=== PATIENT | female | born 1965 | race Caucasian/White ===

== ENCOUNTER 2021-11-10 16:20 | Outpatient (CLI) | payer OTHER, SELFPAY ==
[2021-11-10 21:57] LABS: Albumin* 4.5 g/dL (3.3-5.0); Chloride* 104 mmol/L (96-114)
[2021-11-10 21:58] LABS: Potassium* 4.1 mmol/L (3.6-5.1); Sodium* 137 mmol/L (135-149)
[2021-11-10 22:00] LABS: Bilirubin Total* 0.4 mg/dL (0.1-1.5); Blood Urea Nitrogen* 14 mg/dL (7-30); Carbon Dioxide* 24 mmol/L (20-32); Cholesterol* 182 mg/dL (90-199); Creatinine* 0.6 mg/dL (0.5-1.5); Estimated Glomerular Filt Rate 106 ml/min; Total Protein* 7.3 g/dL (6.0-8.3)
[2021-11-10 22:01] LABS: Alanine Aminotransferase* 55 U/L (4-35); Alkaline Phosphatase* 103 U/L (40-150); Aspartate Amino Transferase* 38 U/L (12-35); Calcium* 9.5 mg/dL (8.4-10.6); Glucose* 101 mg/dL (60-115); HDL Cholesterol* 57 mg/dL (>=50); LDL Cholesterol Calculated 109 mg/dL (<100); Triglycerides* 80 mg/dL (40-149)
[2021-11-10 22:17] LABS: Vitamin D 25 Hydroxy* 36 ng/mL (30-80)
[2021-11-10 22:58] LABS: Hepatitis C Virus Antibody* Positive (Negative)
== END 2021-11-10 16:21 | disposition home or self-care (01) ==
PROVIDERS: PCP Family Medicine; Visit Provider Family Medicine
DX: F32.A Depression, unspecified (principal); M85.80 Other specified disorders of bone density and structure, unspecified site; Z13.220 Encounter for screening for lipoid disorders; R76.8 Other specified abnormal immunological findings in serum; Z11.59 Encounter for screening for other viral diseases; Z79.899 Other long term (current) drug therapy
CPT/HCPCS: 80053; 80061; 82306; 84443; 86803; 87522

== ENCOUNTER 2022-04-27 15:11 | Outpatient (CLI) | payer OTHER, SELFPAY ==
--- NOTE | 2022-04-27 15:00 | CRLHL7_ITS ---
For Patients: As a result of the Century Cures Act, medical imaging exams and procedure reports are released immediately into your electronic medical record. You may view this report before your referring provider. If you have questions, please contact your health care provider. BILATERAL SCREENING MAMMOGRAM WITH COMPUTER-AIDED DETECTION TECHNIQUE: CC and MLO views were obtained. These mammographic images have been obtained using full-field digital technique. These mammographic images were interpreted with the benefit of computer-aided detection. COMPARISON FILM: 08/30/17, 07/06/16, 07/02/14. FINDINGS: The breasts are heterogeneously dense, which may obscure small masses IMPRESSION: There is no radiographic evidence for malignancy. ASSESSMENT: BI-RADS Category 1: Negative RECOMMENDATION: Routine screening mammogram in 1 year. A lay language report of this examination will be provided to the patient. Qamar Dominguez M.D. Diagnostic Radiologist [email or web address] LINO/Dictated by: Qamar Dominguez MD @ 05/04/2022 9:41:00 AM (Electronically Signed)
== END 2022-04-27 15:12 | disposition home or self-care (01) ==
PROVIDERS: PCP Family Medicine
DX: Z12.31 Encounter for screening mammogram for malignant neoplasm of breast (principal); R92.2 Inconclusive mammogram
CPT/HCPCS: 77063; 77067

== ENCOUNTER 2024-04-03 14:41 | Outpatient (CLI) | payer OTHER, SELFPAY | END 2024-04-03 14:42 | disposition home or self-care (01) | PROVIDERS: PCP Family Medicine; Visit Provider Family Medicine | DX: I10 Essential (primary) hypertension (principal); R79.89 Other specified abnormal findings of blood chemistry; Z13.6 Encounter for screening for cardiovascular disorders; Z13.1 Encounter for screening for diabetes mellitus | CPT/HCPCS: 80053; 80061; 82043; 82570 ==

== ENCOUNTER 2024-05-11 12:13 | Outpatient (CLI) | payer OTHER, SELFPAY ==
--- NOTE | 2024-05-11 13:33 | P.ANES_ITS ---
Anesthesia Charges Start Date/Time Anesthesia Start Date: 05/11/24 Anesthesia Start Time: 13:08 Stop Date/Time Anesthesia Stop Date: 05/11/24 Anesthesia Stop Time: 13:31 Coding CPT Codes CPT Codes: DULCE LWR INTST SCR COLSC - 11565 ([id number]) P2 - PATIENT W/MILD SYST DISEASE, QX - SLIP COVER CUTTER SVC W/ MD MED DIRECTION, QK - SEPTIC TECHNICIAN 2-4 CNCRNT ANES PROC
--- NOTE | 2024-05-11 13:33 | W.ANESCHARGE ---
Anesthesia Charges Start Date/Time Anesthesia Start Date: 05/11/24 Anesthesia Start Time: 13:08 Stop Date/Time Anesthesia Stop Date: 05/11/24 Anesthesia Stop Time: 13:31 Coding CPT Codes CPT Codes: DULCE LWR INTST SCR COLSC - 90810 ([id number]) P2 - PATIENT W/MILD SYST DISEASE, QX - POSTAL DELIVERY OFFICER SVC W/ MD MED DIRECTION, QK - ELECTRO MECHANICAL TECHNOLOGIST 2-4 CNCRNT ANES PROC
--- NOTE | 2024-05-11 13:45 | P.ANES_ITS ---
Anesthesia Charges Start Date/Time Anesthesia Start Date: 05/11/24 Anesthesia Start Time: 13:08 Stop Date/Time Anesthesia Stop Date: 05/11/24 Anesthesia Stop Time: 13:31 Coding CPT Codes CPT Codes: DULCE LWR INTST SCR COLSC - 28751 ([id number]) QK - CENTRIFUGAL SPINNER 2-4 CNCRNT DULCE PROC, QX - DOG AND CAT FOOD COOK SVC W/ MD MED DIRECTION, P2 - PATIENT W/MILD SYST DISEASE
--- NOTE | 2024-05-11 13:45 | W.ANESCHARGE ---
Anesthesia Charges Start Date/Time Anesthesia Start Date: 05/11/24 Anesthesia Start Time: 13:08 Stop Date/Time Anesthesia Stop Date: 05/11/24 Anesthesia Stop Time: 13:31 Coding CPT Codes CPT Codes: DULCE LWR INTST SCR COLSC - 57414 ([id number]) QK - COMBINATION PRESSER 2-4 CNCRNT DULCE PROC, QX - HOSPITAL SUPERVISOR SVC W/ MD MED DIRECTION, P2 - PATIENT W/MILD SYST DISEASE
== END 2024-05-11 12:14 | disposition home or self-care (01) ==
LOC: OP CLINIC 12:15
PROVIDERS: PCP Family Medicine; Visit Provider Surgery
DX: Z12.11 Encounter for screening for malignant neoplasm of colon (principal); Z86.0100 Personal history of colon polyps, unspecified
CPT/HCPCS: 00812; 45378; J2704

== ENCOUNTER 2024-06-23 15:48 | Outpatient (CLI) | payer OTHER, SELFPAY ==
--- NOTE | 2024-06-23 16:00 | CRLHL7_ITS ---
For Patients: As a result of the Century Cures Act, medical imaging exams and procedure reports are released immediately into your electronic medical record. You may view this report before your referring provider. If you have questions, please contact your health care provider. INDICATION: BILATERAL SCREENING MAMMOGRAM, ASYMPTOMATIC 58 Y/O FEMALE COMPARISON: 04/27/22, 08/30/17, 07/06/16 TECHNIQUE: CC and MLO views were obtained. These mammographic images have been obtained using full-field digital technique. These mammographic images were interpreted with the benefit of computer aided detection and tomosynthesis. BREAST COMPOSITION: The breasts are heterogeneously dense, which may obscure small masses. FINDINGS: No suspicious findings. ASSESSMENT: BI-RADS 1 Negative RECOMMENDATION: Annual screening mammogram. A lay language report of this examination will be provided to the patient. Dictated by: Qamar Dominguez MD @ 06/25/2024 13:34:41 (Electronically Signed)
== END 2024-06-23 15:49 | disposition home or self-care (01) ==
LOC: MAMMO 15:48
PROVIDERS: PCP Family Medicine; Visit Provider Family Medicine
DX: Z12.31 Encounter for screening mammogram for malignant neoplasm of breast (principal); R92.333 Mammographic heterogeneous density, bilateral breasts
CPT/HCPCS: 77063; 77067

== ENCOUNTER 2024-09-01 11:34 | Outpatient (CLI) | payer OTHER, SELFPAY ==
--- NOTE | 2024-09-01 11:30 | CRLHL7_ITS ---
For Patients: As a result of the Century Cures Act, medical imaging exams and procedure reports are released immediately into your electronic medical record. You may view this report before your referring provider. If you have questions, please contact your health care provider. Indication: Edema of the left eye status post antibiotics for left ear pain Technique: Volumetric multidetector CT images of the orbital and facial soft tissues were obtained after the administration of low osmolar intravenous contrast. 90 cc Isovue 370 low osmolar intravenous contrast Comparison: None available. Findings: The partially visualized brain parenchyma is normal in attenuation without evidence of abnormal enhancement. The globes and extra-ocular muscles are unremarkable. There is [id number] left periorbital, preseptal soft tissue swelling. The retrobulbar fat is unremarkable without evidence of inflammatory change or fluid collection. The paranasal sinuses are clear. There is demonstration of marked thickening of the membranous portion of the left external auditory canal with periauricular inflammatory changes and reactive parotid and periauricular lymph nodes. Otherwise, there is minimal opacity within the left middle ear. No evidence of significant opacification of the mastoid air cells. No obvious gas formation or bony erosion. The nasopharynx is unremarkable. The fossae of Rosenmuller are clear. The deep spaces of the skull base soft tissues are otherwise preserved. No other pathologically enlarged lymph nodes are identified. The facial osseus structures are grossly intact without acute osseus abnormality. Impression: 1. Mild left periorbital, preseptal soft tissue swelling which may represent developing periorbital cellulitis with questionable mild enhancement of the sclera which may represent a component of mild uveitis. No evidence of postseptal extension. 2. Demonstration of moderate thickening of the left external auditory canal with periauricular soft tissue swelling and reactive periauricular lymph nodes consistent with known otitis externa. No obvious bony erosion of the osseous portion of the external auditory canal or extension of infectious changes into the adjacent temporomandibular joint/skull base osseous structures to suggest malignant otitis externa. Findings were discussed with Haylee Pinon at 12:53 p.m. September 01, 20[address] Please note that all CT scans at this facility use dose modulation, iterative reconstruction, and/or weight-based dosing when appropriate to reduce radiation dose to as low as reasonably achievable. Dictated by Delmer Samson MD @ 09/01/2024 12:53:37 PM (Electronically Signed)
== END 2024-09-01 11:35 | disposition home or self-care (01) ==
LOC: CT 11:35
PROVIDERS: PCP Family Medicine; Visit Provider Family Medicine
DX: H05.229 Edema of unspecified orbit (principal); R51.9 Headache, unspecified; H92.02 Otalgia, left ear
CPT/HCPCS: 70481; Q9967

== ENCOUNTER 2024-11-16 13:45 | Outpatient (CLI) | payer OTHER, SELFPAY | END 2024-11-16 13:46 | disposition home or self-care (01) | PROVIDERS: PCP Family Medicine; Visit Provider Family Medicine | DX: L65.9 Nonscarring hair loss, unspecified (principal); R79.89 Other specified abnormal findings of blood chemistry | CPT/HCPCS: 80053; 84443 ==